=== PATIENT | male | born 1950 | race African-American/Black ===

== ENCOUNTER 2018-08-26 09:01 | Emergency (ER) | payer BC ==
--- OUTSIDE RECORDS SUMMARY | 2018-08-26 09:09 | XMS REPORT | Continuity of Care Document ---
:1950 External Reference #:[id number] Author Name Rosemarie Lu O.D. Address [address] [place] [address] Care Team Providers Name Role Phone Jay Jones M.D. Primary Care Physician Unavailable Payers Date Identification Numbers Payment Provider Subscriber Policy Number: [id number] [employer] Plan [employer] PayID: [id number] [address] [place] [address] Advance Directives Description No Information Available Problems Active Problems Provider Date Graves' disease Onset: Hypothyroidism Onset: Type 2 diabetes mellitus Onset: 12/12/2010 Note: 2010 Essential hypertension Onset: Low tension glaucoma Miguel Ángel Hoffmann M.D. Onset: 01/05/2015 Nuclear senile cataract Miguel Ángel Hoffmann M.D. Onset: 01/05/2015 Severe / Advanced / End Stage Glaucoma Miguel Ángel Hoffmann M.D. Onset: 2014 Combined form of senile cataract Miguel Ángel Hoffmann M.D. Onset: 03/04/2015 Low tension glaucoma Miguel Ángel Hoffmann M.D. Onset: 03/04/2015 Inguinal hernia Miguel Ángel Hoffmann M.D. 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 Solution night Brimonidine Tartrate 1 drop both 30ml Miguel Ángel Hoffmann, 07/05/2018 0.2% eyes twice a M.D. Solution day Travatan Z 1 drop both 7.5units Miguel Ángel Hoffmann, 02/02/2016 0.004% eyes every M.D. Solution night Levothyroxine Sodium Unknown 200mcg Tablets Losartan Unknown Potassium/Hydrochlorot hiazide 50-12.5mg Tablets Aspirin 2 daily Unknown 325mg Tablets History Medications Timolol Maleate use 1 drop In 15ml Miguel Ángel Mortensen 04/18/2018 - 0.5% Both Eyes daily Maximo Hoffmann 08/02/2018 (Daily) Solution (in the morning) Bimatoprost 1 drop both eyes 10units Miguel Ángel Mortensen 02/08/2016 - 0.03% every night Maximo Hoffmann 04/16/2018 Solution Pred Forte One drop three 5ml Miguel Ángel Mortensen 12/27/2015 - 1% times a day in Maximo Hoffmann 04/16/2018 Suspension the left eye for three days, then discontinue. Travoprost 1 drop both eyes 15ml Miguel Ángel Mortensen 12/27/2015 - 0.004% every night Maximo Hoffmann 01/31/2016 Solution Travoprost 1 drop both eyes 15ml H40.1233 Miguel Ángel Mortensen 08/09/2015 - 0.004% every night Maximo Hoffmann 01/31/2016 Solution Pred Forte One drop three 1ml H40.1233 Miguel Ángel Mortensen 03/04/2015 - 1% times a day after Maximo Hoffmann 08/05/2015 Suspension laser procedure Travoprost 1 drop both eyes 10ml H40.1233 Miguel Ángel Mortensen 01/05/2015 - 0.004% every night Maximo Hoffmann 08/03/2015 Solution Dorzolamide 1 drop both eyes Miguel Ángel Mortensen 01/04/2015 - HCL/Timolol Maleate daily Maximo Hoffmann 01/05/2015 22.3-6.8mg/ml Solution Immunizations Description No Information Available Vital Signs Description No Information Available Results Description No Information Available Procedures Date Code Description Status 04/18/2018 29899 Scanning Computerized Ophthalmic Diagnostic Imag Posterior Completed Seg On 04/18/2018 07407 Determination Of Refractive State Completed 04/18/2018 87113 Est Patient Comprehensive Exam Completed 04/15/2018 88979 Visual Field Exam Extended Completed 12/27/2015 78181 Est Patient Intermediate Exam Completed 08/09/2015 50782 Est Patient Intermediate Exam Completed 03/04/2015 50368 Visual Field Exam Extended Completed 03/04/2015 92839 Est Patient Intermediate Exam Completed 01/05/2015 36115 Est Patient Comprehensive Exam Completed 01/05/2015 44714 Scanning Computerized Ophthalmic Diagnostic Imag Posterior Completed Seg On 04/21/2014 76741 Visual Field Exam Extended Completed 04/08/2014 09060 Fundus Photography With Interpretation And Report Completed 04/08/2014 95463 Est Patient Comprehensive Exam Completed 11/20/2011 53394 Determination Of Refractive State Completed 11/20/2011 07226 Est Patient Intermediate Exam Completed 02/20/2011 25911 Visual Field Exam Extended Completed 02/06/2011 98408 Scanning Computerized Ophthalmic Diagnostic Imag Posterior Completed Seg On 02/06/2011 35663 Determination Of Refractive State Completed 02/06/2011 82747 Est Patient Comprehensive Exam Completed Encounters Type Date Location Provider Dx Diagnosis Office Visit 07/05/2018 Miguel Ángel Dillard, H40.1223 Low- tension 8:30a zeke JENNINGS M.D. glaucoma, left eye, severe stage H40.1211 Low-tension glaucoma, right eye, mild stage Office Visit 08/24/2015 8:15a Miguel Ángel Latham H40.1233 Low-tension MD Tahira, zeke Lu O.D. glaucoma, bilateral, severe stage Office Visit 04/21/2014 11:45a Miguel Ángel Méndez 365.12 Low Tension MD Tahira, zeke Quijano M.D. Glaucoma 365.72 Moderate Glaucoma Office Visit 04/03/2011 10:00a Rene Dillard, 365.12 Low Tension zeke JENNINGS M.D. Glaucoma 365.01 Low Risk Open Angle Glaucoma/ Suspect 365.72 Moderate Glaucoma Office Visit 03/20/2011 10:00a Rene Dillard, 365.12 Low Tension zeke JENNINGS M.D. Glaucoma 365.05 High Risk Open Angle Glaucoma 365.72 Moderate Glaucoma Office Visit 03/06/2011 10:00a Rene Dillard, 365.12 Low Tension zeke JENNINGS M.D. Glaucoma 365.01 Low Risk Open Angle Glaucoma/ Suspect 365.72 Moderate Glaucoma Office Visit 02/20/2011 10:45a Rene Dillard, 365.12 Low Tension zeke JENNINGS M.D. Glaucoma 365.05 High Risk Open Angle Glaucoma 365.72 Moderate Glaucoma Plan of Treatment Future Appointment(s):10/03/2018 9:30 am - Miguel Ángel Hoffmann M.D. at [facility], pc10/03/2018 8:30 am - [facility], 2018 - Rosemarie Lu O.D.H40.1223 Low-tension glaucoma, left eye, severe stageNew Medication:Latanoprost 0.005 % - 1 drop both eyes every nightComments: Your Glaucoma is not considered well controlled in both eyes at this time. This could mean that your eye pressure is not within your target range or your have consistent changes in your Glaucoma testing. Dr. Lu will monitor you more closely until your Glaucoma is under control. start latanoprost 1 drop daily both eyesstart taking brimonidine 1 drop twice a day both eyesFollow up: 2 weeks IOP [id number] Low-tension glaucoma, right eye, mild stageComments: Smoking can increase the risk of developing or worsening any eye related disease , as well as affect your overall health. If you are a smoker, we strongly recommend that you quit.If you are not a smoker, we strongly recommend that you do not start.
[2018-08-26 09:13] VITALS: BP 156/100
--- NOTE | 2018-08-26 10:00 | UC ---
Cardiac HPI - HPI Summary HPI Summary: 67 yo male with right sided chest pain that started this AM after eating breakfast pain lasted 20 nminutes during which time he became diaphorectic and vomitied x 1 this completely resolved his symptoms a little later he decided to take two adult asa due to his earlier CP he took both on an empty stomach a few minutes late he decided to eat some oatmeal as soon as he ate his right sided cp return lasted <10 minutes and resolved when he vomited states he had a stiff neck when he awoke this AM had some right arm paresthesias which resolved currently symptoms free - History of Current Complaint Chief Complaint: UCUpperExtremity Stated Complaint: R SHOULDER PAIN Time Seen by Provider: 08/26/18 09:38 Hx Obtained From: Patient Onset/Duration: Sudden Onset, Lasting Minutes Timing: Intermittent Episodes Lasting: - two episodes longest about 20 minutes Initial Severity: Severe Current Severity: None Pain Intensity: 0 Chest Pain Location: Discrete at: - right ant chest Character: Pressure/Squeezing Aggravating Factor(s): Other - ?food Alleviating Factor(s): Other - vomiting Associated Signs & Symptoms: Positive: Chest Pain, Diaphoresis, Nausea/Vomiting - Allergy/Home Medications Allergies/Adverse Reactions: Allergies Allergy/AdvReac Type Severity Reaction Status Date / Time ENVIRONMENTAL/SEASONAL Allergy SNEEZE, Uncoded 08/26/18 09:13 HAYFEVER CONGESTION PMH/Surg Hx/FS Hx/Imm Hx Previously Healthy: Yes Endocrine History: Diabetes, Thyroid Disease Cardiovascular History: Hypertension, Deep Vein Thrombosis - ? - Surgical History Surgical History: Yes Surgery Procedure, Year, and Place: inguinal repair 10 yrs ago; lap knee surgery BILATERAL KNEES - Social History Alcohol Use: None Substance Use Type: None Smoking Status (MU): Never Smoked Tobacco Review of Systems All Other Systems Reviewed And Are Negative: Yes Constitutional: Positive: Negative Skin: Positive: Negative Eyes: Positive: Negative ENT: Positive: Negative Respiratory: Positive: Negative Cardiovascular: Positive: Chest Pain Gastrointestinal: Positive: Vomiting, Nausea Genitourinary: Positive: Negative Motor: Positive: Negative Neurovascular: Positive: Negative Musculoskeletal: Positive: Negative Neurological: Positive: Negative Psychological: Positive: Negative Physical Exam Triage Information Reviewed: Yes Appearance: Well-Appearing, No Pain Distress Vital Signs: Initial Vital Signs Temp 97.1 F 08/26/18 09:08 Pulse 75 08/26/18 09:08 Resp 18 08/26/18 09:08 BP 156/100 08/26/18 09:08 Pulse Ox 100 08/26/18 09:08 Vital Signs Reviewed: Yes Eyes: Positive: Conjunctiva Clear ENT: Positive: Hearing grossly normal, Uvula midline. Negative: Nasal congestion, Nasal drainage, Trismus, Muffled voice, Hoarse voice Neck: Positive: Supple, Nontender, No Lymphadenopathy Respiratory: Positive: Lungs clear, Normal breath sounds, No respiratory distress, No accessory muscle use Cardiovascular: Positive: RRR, No Murmur Abdomen Description: Positive: Nontender, No Organomegaly, Soft. Negative: CVA Tenderness (R), CVA Tenderness (L) Bowel Sounds: Positive: Present Musculoskeletal: Positive: ROM Intact, No Edema Neurological: Positive: Alert Psychological Exam: Normal Skin Exam: Normal Diagnostics - EKG Cardiac Rate: NL Cardiac Rhythm: Sinus: Normal Ectopy: None ST Segment: Normal - Assessment/Plan Course Of Treatment: due to risk factors I advised patient to go to ER for further evaluation declined EMS transfer will drive ER attending aware - Clinical Impression Provider Diagnosis: Atypical chest pain Discharge - Sign-Out/Discharge Documenting (check all that apply): Patient Departure All imaging exams completed and their final reports reviewed: No Studies - Discharge Plan Condition: Stable Disposition: HOME-RECOMMEND TO ED Referrals: Jay Jones MD [Primary Care Provider] - Additional Instructions: Please go directly to the ER for further evaluation of your symptoms - Billing Disposition and Condition Condition: STABLE Disposition: Home-Recommend to ED
== END 2018-08-26 10:06 | disposition home health service (06) ==
LOC: UCEAST 09:01
DX: R07.89 Other chest pain (principal); R61 Generalized hyperhidrosis; R11.2 Nausea with vomiting, unspecified; E11.9 Type 2 diabetes mellitus without complications; E07.9 Disorder of thyroid, unspecified; I10 Essential (primary) hypertension
CPT/HCPCS: 93005; 99212; G0463

== ENCOUNTER 2018-08-26 10:52 | Emergency (ER) | payer BC ==
--- NOTE | 2018-08-26 11:17 | ED ---
HPI Chest Pain - HPI Summary HPI Summary: This pt is a 67 y/o male presenting to [facility] referred by [facility] for right upper abdomen pain since this morning. Pt reports he woke up at around 0500 this morning as usual to start his routine. He felt ok over the weekend, last 2 days. He notes that he had his usual light breakfast that included a banana, apple, oatmeal cookies, and cup of coffee. Pt states he did not have a good sleep last night and woke up this morning with a stiff neck. After his breakfast he notes he felt a "funny feeling" in the right upper abdomen, right shoulder, and felt his right hand was numb (unusual numbness). Pt went to do some work on his computer and noted his pain was worse. He then lied down but felt a stronger pain and had nausea. Pt vomited and states he felt immediately better after this. Pt took an aspirin after vomiting but then realized he had an empty stomach so he drank milk. He went back to his computer but felt the same pain again and rushed to vomit again. Pt reports he felt better again immediately after vomiting. Pt describes diaphoresis with both episodes of pain. Denies SOB. He has never had this pain in the past. Pt currently reports feeling ok. PMHx includes DM, HTN, thrombophlebitis. He is usually on aspirin but has recently switched to ibuprofen 600 mg for a recent knee injury. - History of Current Complaint Chief Complaint: EDChestPainROMI Time Seen by Provider: 08/26/18 11:05 Hx Obtained From: Patient Onset/Duration: Started Hours Ago Timing: Lasting Hours Initial Severity: Moderate Current Severity: None Pain Intensity: 0 Pain Scale Used: 0-10 Numeric Chest Pain Location: Discrete at: - right upper abdomen Chest Pain Radiates: No Aggravating Factor(s): Nothing Alleviating Factor(s): Other: - vomiting Associated Signs and Symptoms: Positive: Chest Pain, Numbness - right hand, Diaphoresis, Nausea, Vomiting, Other: - right shoulder pain. Negative: Shortness of Breath, Fever - Allergy/Home Medications Allergies/Adverse Reactions: Allergies Allergy/AdvReac Type Severity Reaction Status Date / Time ENVIRONMENTAL/SEASONAL Allergy SNEEZE, Uncoded 08/26/18 09:13 HAYFEVER CONGESTION Home Medications: Home Medications Aspirin TAB* [Aspirin 325 MG TAB*] 325 mg PO EVERY OTHER DAY 08/26/18 [History Confirmed 08/26/18] Latanoprost 0.005%* [Xalatan 0.005%*] 1 drop BOTH EYES BEDTIME 08/26/18 [ History Confirmed 08/26/18] Levothyroxine TAB* [Synthroid TAB*] 200 mcg PO DAILY 08/26/18 [History Confirmed 08/26/18] PMH/Surg Hx/FS Hx/Imm Hx Endocrine/Hematology History: Reports: Hx Diabetes - TYPE 2, 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 ) Denies: Hx Systemic Lupus Erythematosus, Hx Sickle Cell Disease Cardiovascular History: Reports: Hx Hypertension - WELL CONTROLLED WITH MEDICATION, Other Cardiovascular Problems/Disorders - 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 AGO, NO PROBLEMS NOW Denies: Hx Congestive Heart Failure, Hx Pacemaker/ICD Respiratory History: Denies: Hx Asthma, Hx Chronic Obstructive Pulmonary Disease (COPD), Hx Sleep Apnea GI History: Denies: Hx Ulcer History: Denies: Hx Dialysis, Hx Renal Disease, Other Problems/Disorders Musculoskeletal History: Reports: Hx Arthritis - BILATERAL KNEES Denies: Hx Rheumatoid Arthritis Sensory History: Reports: Hx Contacts or Glasses - GLASSES, Hx Glaucoma - BILATERAL Denies: Hx Hearing Aid Opthamlomology History: Reports: Hx Contacts or Glasses - GLASSES, Hx Glaucoma - BILATERAL Neurological History: Denies: Other Neuro Impairments/Disorders Psychiatric History: Denies: Hx Panic Disorder - Cancer History Hx Chemotherapy: No - Surgical History Surgery Procedure, Year, and Place: inguinal repair 10 yrs ago; lap knee surgery BILATERAL KNEES Hx Anesthesia Reactions: No Infectious Disease History: No Infectious Disease History: Denies: Hx Hepatitis, Hx Human Immunodeficiency Virus (HIV), Traveled Outside the [place] in Last 30 Days - Family History Family History: Father with leukemia - Social History Alcohol Use: None Substance Use Type: Reports: None Smoking Status (MU): Never Smoked Tobacco Review of Systems Positive: Skin Diaphoresis. Negative: Fever Negative: Shortness Of Breath Positive: Abdominal Pain, Vomiting, Nausea Musculoskeletal: Other - POS: right shoulder pain Positive: Numbness - right hand All Other Systems Reviewed And Are Negative: Yes Physical Exam - Summary Physical Exam Summary: Appearance: Well-appearing, Well-nourished, lying in bed comfortably Skin: Warm, dry, no obvious rash Eyes: sclera anicteric, no conjunctival pallor ENT: mucous membranes moist, pharynx appears normal Neck: Supple, nontender Respiratory: Clear to auscultation, no signs of respiratory distress Cardiovascular: Normal S1, S2. No murmurs. Normal distal pulses in tibial and radial bilaterally. Abdomen: Soft, nontender, normal active bowel sounds present Musculoskeletal: Normal, Strength/ROM Intact Neurological: A&Ox3, awake and alert, mentation is normal, speech is fluent and appropriate Psychiatric: affect is normal, does not appear anxious or depressed Triage Information Reviewed: Yes Vital Signs On Initial Exam: Initial Vitals Temp Pulse Resp BP Pulse Ox 98.0 F 79 20 156/96 98 08/26/18 10:57 08/26/18 10:57 08/26/18 10:57 08/26/18 10:57 08/26/18 10:57 Vital Signs Reviewed: Yes Diagnostics - Vital Signs Vital Signs Temp Pulse Resp BP Pulse Ox 08/26/18 10:57 98.0 F 79 20 156/96 98 - Laboratory Result Diagrams: 08/26/18 11:38 08/26/18 11:38 Lab Statement: Any lab studies that have been ordered have been reviewed, and results considered in the medical decision making process. - Radiology Chest XR Radiology Interpretation Completed By: ED Physician - negative XR, Radiologist Summary of Radiographic Findings: Pending official radiology report. - Ultrasound No standard instances Ultrasound Interpretation Completed By: Radiologist Summary of Ultrasound Findings: Gallbladder US IMPRESSION: #. Increased echogenicity of the liver consistent with hepatosteatosis. #. Negative for gallbladder pathology. Dr. Gonzalez has reviewed this report. - EKG 11:08 Cardiac Rate: NL - at 71 bpm EKG Rhythm: Sinus Rhythm Summary of EKG Findings: IVCD. Chest Pain Course/Dx - Course Assessment/Plan: Pt is a 67 y/o male, with hx of DM, HTN, thrombophlebitis, who presents to the ED referred by [facility] for right upper abdomen pain since this morning. Pt has had 2 episodes of this pain today with associated right shoulder pain, diaphoresis, nausea, and vomiting. He felt immediately better after vomiting during both episodes. Test results remarkable for glucose of 141 , hemoglobin A1c of 7.2. UA is negative. Gallbladder US shows increased echogenicity of the liver consistent with hepatosteatosis and it is negative for gallbladder pathology. Chest XR is negative. This patient's pain is felt to be atypical for cardiac disease. His HEART score is 3 based on risk factors and age. We are going to give him something to eat and see if it comes back, as his symptoms seem to be precipitated by eating this morning. His gallbladder ultrasound does not show any stones. At this point the exact cause of his discomfort this morning is unclear. However, no significant pathology has been turned up in the course of her evaluation here, and if he does well with eating, I believe he can be safely discharged. - Diagnoses Provider Diagnoses: Gastritis, Acute abdominal pain Discharge - Sign-Out/Discharge Documenting (check all that apply): Patient Departure - Discharge home Patient Received Moderate/Deep Sedation with Procedure: No - Discharge Plan Condition: Good Disposition: HOME Prescriptions: Ondansetron ODT TAB* [Zofran 4 MG Odt TAB*] 8 mg PO Q6H PRN #14 tab.odt PRN Reason: Nausea Pantoprazole TAB * [Protonix TAB*] 40 mg PO DAILY #14 tab Patient Education Materials: Gastritis (ED), Acute Abdominal Pain (ED) Referrals: Jay Jones MD [Primary Care Provider] - 2 Days Additional Instructions: We did not find an exact cause of your discomfort. The ultrasound did not show any gallstones, and the workup on the heart was normal. For the time being I am empirically treating you for irritation in the stomach with an acid blocking medication. Contact your regular doctor for followup. They may want to refer you to a machine design teacher if this keeps up to have an endoscopy done. - Billing Disposition and Condition Condition: GOOD Disposition: Home - Attestation Statements Document Initiated by David: Yes Documenting Scribe: Janny Kumar Provider For Whom David is Documenting (Include Credential): MD Barry Arriagaibjean Attestation: Janny Felix, scribed for Nabil Gonzalez MD on 08/27/18 at 1103. Scribe Documentation Reviewed: Yes Provider Attestation: The documentation as recorded by the Janny rodrigues accurately reflects the service I personally performed and the decisions made by me, Nabil Gonzalez MD Status of Scribe Document: Viewed
[2018-08-26 12:00] LABS: ABS Basophils 0 10^3/ul (0-0.2); ABS Eosinophils 0 10^3/ul (0-0.6); ABS Lymphocytes 0.7 10^3/ul (1.0-4.8); ABS Monocytes 0.3 10^3/ul (0-0.8); ABS Neutrophils 5.8 10^3/ul (1.5-7.7); ABS Nucleated RBC 0 10^3/ul; Eosinophil % 0.3 %; Hematocrit 44 % (36-46); Hemoglobin 15.3 g/dL (14.0-18.0); Mean Corpuscular HGB Conc 34 g/dL (31-36); Mean Corpuscular Hemoglobin 33 pg (27-31); Mean Corpuscular Volume 96 fL (80-94); Mean Platelet Volume 8.4 fL (7.4-10.4); Nucleated Red Blood Cells % 0; Platelet Count 202 10^3/uL (150-450); Red Blood Count 4.65 10^6 /uL (4.18-5.48); Red Cell Distribution Width 14 % (10.5-15); White Blood Count 6.8 10^3/uL (3.5-10.8)
[2018-08-26 12:21] LABS: Albumin/Globulin Ratio 1.5 (1-3); BUN/Creatinine Ratio 13.1 (8-20); Calcium 10.5 mg/dL (8.6-10.3); EGFR African American 83.4 (>60); EGFR Non-African American 68.9 (>60); Globulin 2.7 g/dL (2-4); Potassium 4.1 mmol/L (3.5-5.0); Total Bilirubin 0.7 mg/dL (0.2-1.0); Total Protein 6.7 g/dL (6.4-8.9)
[2018-08-26 12:22] LABS: Troponin I 0.01 ng/mL (<0.04)
[2018-08-26 12:54] LABS: Urine Appearance Clear; Urine Bilirubin Negative (Negative); Urine Blood Negative (Negative); Urine Color Yellow; Urine Glucose Negative (Negative); Urine Ketones Negative (Negative); Urine Nitrite Negative (Negative); Urine Protein Negative (Negative); Urine Specific Gravity 1.013 (1.010-1.030); Urine Urobilinogen Negative (Negative)
[2018-08-26 14:48] VITALS: BP 162/80
== END 2018-08-26 14:48 | disposition home or self-care (01) ==
LOC: ED 10:52
DX: K29.70 Gastritis, unspecified, without bleeding (principal); K76.89 Other specified diseases of liver; R94.31 Abnormal electrocardiogram [ECG] [EKG]; I10 Essential (primary) hypertension; E11.9 Type 2 diabetes mellitus without complications; E05.00 Thyrotoxicosis with diffuse goiter without thyrotoxic crisis or storm; Z79.82 Long term (current) use of aspirin; Z79.890 Hormone replacement therapy; Z86.718 Personal history of other venous thrombosis and embolism
CPT/HCPCS: 36415; 71046; 76705; 80053; 81003; 83036; 83605; 84484; 85025; 85379; 93005; 99282

== ENCOUNTER 2018-08-26 20:36 | Emergency (ER) | payer BC ==
--- NOTE | 2018-08-26 23:11 | ED ---
Complex/Multi-Sys Presentation - HPI Summary HPI Summary: Patient is a 67 y/o M presenting to ED with complaints of right shoulder pain radiating down right arm with numbness/tingling at right palm. Episodes of Sx have been present throughout the day. He states that this morning, he ate some food, felt a "funny feeling" at his RUQ (patient denies abdominal pain) and began to experience RUE Sx. He states that he went to sit down in front of his computer which worsened Sx. He states that he later vomited which resolved Sx. Patient went to ED earlier this morning, was diagnosed with gastritis and was discharged to home. He states that he experienced a similar episode of Sx after eating dinner today and decided to return to ED. No SOB, chest pain is reported , but patient does note some neck pain/stiffness, but states that it is possible this is related to how he slept. Patient notes that RUE Sx would always resolve after vomiting. No similar previous episodes of such Sx are reported. On triage, pain is rated 10/10, eating is noted to aggravate Sx. Home medications and allergies are reviewed. - History Of Current Complaint Chief Complaint: EDGeneral Time Seen by Provider: 08/26/18 22:55 Hx Obtained From: Patient Onset/Duration: Lasting Days - onset today, Still Present Timing: Intermittent, Lasting:, Days - onset today Severity Initially: Severe - 10/10 Location: Pain At: - right shoulder down right arm Aggravating Factor(s): eating Alleviating Factor(s): nothing Associated Signs And Symptoms: Positive: Vomiting, Other - endorses right shoulder pain with radiation of pain down arm, tingling/numbness at right palm, neck pain/stiffness. 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 ) Denies: Hx Systemic Lupus Erythematosus, Hx Sickle Cell Disease Cardiovascular History: Reports: Hx Hypertension - WELL CONTROLLED WITH MEDICATION, Other Cardiovascular Problems/Disorders - 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 AGO, NO PROBLEMS NOW Denies: Hx Congestive Heart Failure, Hx Pacemaker/ICD Respiratory History: Denies: Hx Asthma, Hx Chronic Obstructive Pulmonary Disease (COPD), Hx Sleep Apnea GI History: Denies: Hx Ulcer History: Denies: Hx Dialysis, Hx Renal Disease, Other Problems/Disorders Musculoskeletal History: Reports: Hx Arthritis - BILATERAL KNEES Denies: Hx Rheumatoid Arthritis Sensory History: Reports: Hx Contacts or Glasses - GLASSES, Hx Glaucoma - BILATERAL Denies: Hx Hearing Aid Opthamlomology History: Reports: Hx Contacts or Glasses - GLASSES, Hx Glaucoma - BILATERAL Neurological History: Denies: Other Neuro Impairments/Disorders Psychiatric History: Denies: Hx Panic Disorder - Cancer History Hx Chemotherapy: No - Surgical History Surgery Procedure, Year, and Place: inguinal repair 10 yrs ago; lap knee surgery BILATERAL KNEES Hx Anesthesia Reactions: No - Immunization History Date of Influenza Vaccine: no Infectious Disease History: No Infectious Disease History: Denies: Hx Hepatitis, Hx Human Immunodeficiency Virus (HIV), Traveled Outside the [place] in Last 30 Days - Family History Known Family History: Positive: Other Family History: Father with leukemia - Social History Alcohol Use: None Substance Use Type: Reports: None Smoking Status (MU): Never Smoked Tobacco Review of Systems Negative: Chest Pain Negative: Shortness Of Breath Positive: Vomiting. Negative: Abdominal Pain Musculoskeletal: Other - endorses right shoulder pain with radiation of pain down arm, tingling/numbness at right palm, neck pain/stiffness All Other Systems Reviewed And Are Negative: Yes Physical Exam - Summary Physical Exam Summary: VITAL SIGNS: Reviewed. GENERAL: Patient is a well-developed and nourished male who is lying comfortable in the stretcher. Patient is not in any acute respiratory distress. HEAD AND FACE: No signs of trauma. No ecchymosis, hematomas or skull depressions. No sinus tenderness. EYES: PERRLA, EOMI x 2, No injected conjunctiva, no nystagmus. EARS: Hearing grossly intact. Ear canals and tympanic membranes are within normal limits. MOUTH: Oropharynx within normal limits. NECK: Supple, trachea is midline, no adenopathy, no JVD, no carotid bruit, no c- spine tenderness, neck with full ROM. CHEST: Symmetric, no tenderness at palpation LUNGS: Clear to auscultation bilaterally. No wheezing or crackles. CVS: Regular rate and rhythm, S1 and S2 present, no murmurs or gallops appreciated. ABDOMEN: Soft, non-tender. No signs of distention. No rebound no guarding, and no masses palpated. Bowel sounds are normal. EXTREMITIES: FROM in all major joints, no edema, no cyanosis or clubbing. NEURO: Alert and oriented x 3. No acute neurological deficits. Speech is normal and follows commands. SKIN: Dry and warm Triage Information Reviewed: Yes Vital Signs On Initial Exam: Initial Vitals Temp Pulse Resp BP Pulse Ox 97 F 89 20 179/101 95 08/26/18 21:02 08/26/18 21:02 08/26/18 21:02 08/26/18 21:02 08/26/18 21:02 Vital Signs Reviewed: Yes Diagnostics - Vital Signs Vital Signs Temp Pulse Resp BP Pulse Ox 08/26/18 23:02 98.2 F 85 15 161/101 100 08/26/18 21:02 97 F 89 20 179/101 95 - Laboratory Lab Statement: Any lab studies that have been ordered have been reviewed, and results considered in the medical decision making process. - CT cervical spine ct CT Interpretation Completed By: Radiologist Summary of CT Findings: IMPRESSION: 1. Mild multilevel cervical spondylopathy. 2. OPLL. THIS REPORT WAS REVIEWED BY DR. GIBBS. Re-Evaluation - Re-Evaluation First Eval Re-Evaluation Time: 00:43 Comment: Results of CT was discussed with patient, he will be discharged to home and follow up with PCP and neck doctor, patient is agreeable with this. Complex Multi-Symp Course/Dx Course Of Treatment: Patient is a 67 y/o M presenting to ED with complaints of right shoulder pain radiating down right arm with numbness/tingling at right palm. Episodes of Sx have been present throughout the day. He states that this morning, he ate some food, felt a "funny feeling" at his RUQ (patient denies abdominal pain) and began to experience RUE Sx. He states that he went to sit down in front of his computer which worsened Sx. He states that he later vomited which resolved Sx. Patient went to ED earlier this morning, was diagnosed with gastritis and was discharged to home. He states that he experienced a similar episode of Sx after eating dinner today and decided to return to ED. No SOB, chest pain is reported, but patient does note some neck pain/stiffness, but states that it is possible this is related to how he slept. Patient notes that RUE Sx would always resolve after vomiting. No similar previous episodes of such Sx are reported. Physical exam is unremarkable. CT CERVICAL SPINE IMPRESSION: 1. Mild multilevel cervical spondylopathy. 2. OPLL. During ED course, patient received Ultram 50 mg PO, decadron [address] of CT was discussed with patient, he will be discharged to home and follow up with PCP and neck doctor, patient is agreeable with this. - Diagnoses Provider Diagnoses: Cervical radiculopathy Discharge - Sign-Out/Discharge Documenting (check all that apply): Patient Departure - discharge Patient Received Moderate/Deep Sedation with Procedure: No - Discharge Plan Condition: Stable Disposition: HOME Prescriptions: Dexamethasone TAB* [Decadron TAB*] 4 mg PO BID #10 tab traMADol TAB* [Ultram*] 50 mg PO Q6HR PRN #[id number] tab MDD 4 PRN Reason: Pain Patient Education Materials: Cervical Radiculopathy (ED) Referrals: Jay Jones MD [Primary Care Provider] - 3 Days Chelsie Verde MD [Medical Doctor] - 3 Days Additional Instructions: PLEASE RETURN TO THE EMERGENCY DEPARTMENT IMMEDIATELY FOR WORSENING OR CONCERNING SYMPTOMS. FOLLOW UP WITH YOUR PRIMARY CARE PHYSICIAN AND DR. VERDE WITHIN THREE DAYS. - Attestation Statements Document Initiated by Scribe: Yes Documenting Scribe: RAIMUNDO MITCHELL Provider For Whom Scribe is Documenting (Include Credential): MICHAEL GIBBS MD Scribe Attestation: I, RAIMUNDO MITCHELL, scribed for MICHAEL GIBBS MD on 08/27/18 at 0048. Status of Scribe Document: Ready
[2018-08-26] MEDS ORDERED: traMADol TAB* 50 MG PO ONE (23:17)
[2018-08-27] MEDS ORDERED: Dexamethasone TAB* 4 MG PO ONE (00:38)
[2018-08-27 01:11] VITALS: BP 165/95
== END 2018-08-27 01:09 | disposition home or self-care (01) ==
LOC: ED 20:36
DX: M54.12 Radiculopathy, cervical region (principal); M25.511 Pain in right shoulder; R11.10 Vomiting, unspecified; E11.9 Type 2 diabetes mellitus without complications; I10 Essential (primary) hypertension
CPT/HCPCS: 72125; 99283; A9270-GY; J8540

== ENCOUNTER 2018-11-23 22:11 | Inpatient (IN) | payer BC ==
[2018-11-23] MEDS ORDERED: Labetalol IV* 5 MG/ML 20 ML VIAL IV PUSH ONE (22:25)
--- NOTE | 2018-11-23 22:32 | ED ---
Neurological HPI - HPI Summary HPI Summary: This patient is a 68 year old F presenting to ED with a chief complaint of left arm numbness and paresthesia since 2144 today. Patient was lying down and using his phone with his left hand when the symptoms began. He felt the numbness in his hand and arm and left leg. Per , his speech was not normal, described as thick. She also noticed that his mouth was drooping on the left side. Patient thus took Aspirin. In the room, patient reports the numbness is feeling better than when he left his house. Patient has a history of clots in his legs 10 years ago, and was on blood thinners then, but he no longer takes them. Patient arrives at 2. Dr. Gonzalez at bedside at 2216. Shelli Kulkarni called [id number]. The patient rates the pain 0/10 in severity. Symptoms aggravated by nothing. Symptoms alleviated by nothing. Patient denies fever. Upon examination, patient has an NIH stroke scale of 0. - History of Current Complaint Chief Complaint: EDNeurologicalDeficit Stated Complaint: SLURRED SPEECH, DROOPING ON LEFT SIDE PER PT Time Seen by Provider: 11/23/18 22:19 Last Known Well Date: 214411/23/18 Hx Obtained From: Patient, Family/Psychometrician - Onset/Duration: Sudden Onset, Started minutes ago - 2144, Resolved Onset Severity: Mild Current Severity: Mild Neurological Deficit Location: Facial - Left facial droop, LUE, LLE Pain Intensity: 0 Pain Scale Used: 0-10 Numeric Character: Numbness/Tingling - LUE, Paresthesia - LUE, Other: - Left facial droop, change in speech Aggravating: Nothing Alleviating: Nothing Associated Signs and Symptoms: Positive: Impaired Speech - Thick, per patient, Numbness - LUE - Allergy/Home Medications Allergies/Adverse Reactions: Allergies Allergy/AdvReac Type Severity Reaction Status Date / Time ENVIRONMENTAL/SEASONAL Allergy SNEEZE, Uncoded 08/26/18 09:13 HAYFEVER CONGESTION PMH/Surg Hx/FS Hx/Imm Hx Endocrine/Hematology History: Reports: Hx Diabetes - TYPE 2, 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 ) Denies: Hx Systemic Lupus Erythematosus, Hx Sickle Cell Disease Cardiovascular History: Reports: Hx Hypertension - WELL CONTROLLED WITH MEDICATION, Other Cardiovascular Problems/Disorders - 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 AGO, NO PROBLEMS NOW Denies: Hx Congestive Heart Failure, Hx Pacemaker/ICD Respiratory History: Denies: Hx Asthma, Hx Chronic Obstructive Pulmonary Disease (COPD), Hx Sleep Apnea GI History: Denies: Hx Ulcer History: Denies: Hx Dialysis, Hx Renal Disease, Other Problems/Disorders Musculoskeletal History: Reports: Hx Arthritis - BILATERAL KNEES Denies: Hx Rheumatoid Arthritis Sensory History: Reports: Hx Contacts or Glasses - GLASSES, Hx Glaucoma - BILATERAL Denies: Hx Hearing Aid Opthamlomology History: Reports: Hx Contacts or Glasses - GLASSES, Hx Glaucoma - BILATERAL Neurological History: Denies: Hx Seizures, Other Neuro Impairments/Disorders Psychiatric History: Denies: Hx Panic Disorder - Cancer History Hx Chemotherapy: No - Surgical History Surgery Procedure, Year, and Place: inguinal repair 10 yrs ago; lap knee surgery BILATERAL KNEES Hx Anesthesia Reactions: No - Immunization History Date of Influenza Vaccine: no Infectious Disease History: No Infectious Disease History: Denies: Hx Hepatitis, Hx Human Immunodeficiency Virus (HIV), Traveled Outside the [place] in Last 30 Days - Family History Known Family History: Positive: Other - Leukemia in father Family History: Father with leukemia - Social History Alcohol Use: None Hx Substance Use: No Substance Use Type: Reports: None Hx Tobacco Use: No Smoking Status (MU): Never Smoked Tobacco Review of Systems Negative: Fever Neurological: Other - Left facial droop, thick speech Positive: Paresthesia - Left arm, Numbness - Left-sided All Other Systems Reviewed And Are Negative: Yes Physical Exam - Summary Physical Exam Summary: Appearance: Well-appearing, Well-nourished, lying in bed comfortably Skin: Warm, dry, no obvious rash Eyes: sclera anicteric, no conjunctival pallor ENT: mucous membranes moist, pharynx appears normal Neck: Supple, nontender Respiratory: Clear to auscultation, no signs of respiratory distress Cardiovascular: Normal S1, S2. No murmurs. Normal distal pulses in tibial and radial bilaterally. Abdomen: Soft, nontender, normal active bowel sounds present Musculoskeletal: Normal, Strength/ROM Intact, Motor function in all 4 extremities is normal and symmetric. There is no rigidity or tremor noted. Neurological: A&Ox3, awake and alert, mentation is normal, speech is fluent and appropriate, Level of consciousness nml. The patient is alert and oriented. Cranial nerves are grossly intact. Gaze is conjugate and without nystagmus. Peripheral vision is intact to confrontation. There are no gross sensory abnormalities to light touch. There is no truncal or fine motor ataxia. Gait is normal. Psychiatric: affect is normal, does not appear anxious or depressed GCS: 15 NIH: 0 Triage Information Reviewed: Yes Vital Signs On Initial Exam: Initial Vitals Temp Pulse Resp BP Pulse Ox 97.5 F 78 16 169/111 99 11/23/18 22:17 11/23/18 22:17 11/23/18 22:17 11/23/18 22:17 11/23/18 22:17 Vital Signs Reviewed: Yes Diagnostics - Vital Signs Vital Signs Temp Pulse Resp BP Pulse Ox 11/23/18 22:17 97.5 F 78 16 169/111 99 - Laboratory Result Diagrams: 11/23/18 22:37 11/23/18 22:37 Lab Statement: Any lab studies that have been ordered have been reviewed, and results considered in the medical decision making process. - CT Brain CT Interpretation Completed By: Radiologist Summary of CT Findings: No acute intracranial abnormality. Dr. Gonzalez has reviewed this radiology report. - EKG 2244 Cardiac Rate: NL - 69 BPM EKG Rhythm: Sinus Rhythm ST Segment: Normal Ectopy: None Summary of EKG Findings: NSR at 69 BPM, P waves, QRS complex, and T waves are within normal limits, T waves and intervals are normal, no ischemic changes. This is a normal EKG. NIH Scale - NIH Scale Level of Consciousness: Alert/Keenly Responsive Ask Patient the Month and His/Her Age: Both Correct Ask Pt to Open/Close Eyes and Breaker Machine Tender/Release Non-Paretic Hand: Both Correctly Best Gaze (Only Horizontal Eye Movement): Normal Visual Field Testing: No Visual Loss Facial Paresis-Pt to Smile & Close Eyes or Grimace Symmetry: Normal/Symmetrical Motor Function - Right Arm: No Drift-Holds 10 Seconds Motor Function - Left Arm: No Drift-Holds 10 Seconds Motor Function - Right Leg: No Drift-Holds 10 Seconds Motor Function - Left Leg: No Drift-Holds 10 Seconds Limb Ataxia-Must be out of Proportion to Weakness Present: Absent Sensory (Use Pinprick to Test Arms/Legs/Trunk/Face): Normal Best Language (Describe Picture, Name Items): No Aphasia Dysarthria (Read Several Words): Normal Extinction and Inattention: No Abnormality Total Score: 0 Re-Evaluation - Re-Evaluation First Eval Re-Evaluation Time: 21:44 Comment: Discussed brain CT results with patient. Patient will be admitted to [facility] with dx of TIA and for further neuro work-up. Patient understands and agrees with this plan. Course/Dx - Course Course Of Treatment: This patient is a 68 year old F presenting to ED with a chief complaint of left arm numbness and paresthesia since 2144 today. In the ED course, patient received Trandate. Brain CT revealed no acute intracranial abnormality. Blood work obtained. EKG at 4 revealed NSR at 69 BPM, P waves, QRS complex, and T waves are within normal limits, T waves and intervals are normal, no ischemic changes. This is a normal EKG. Discussed patient case with Dr. Coello, neurologist at [place], who does not recommend lytics but recommended the patient be admitted to [facility] and to obtain a CTA. At 2300 discussed patient case with Dr. Porter, hospitalist, who accepted the patient for admission to [facility]. Patient will be admitted with dx of TIA. Patient understands and agrees with this plan. - Diagnoses Provider Diagnoses: TIA (transient ischemic attack) - Physician Notifications Discussed Care Of Patient With: Bryan Coello Time Discussed With Above Provider: 22:38 Instructed by Provider To: Other - Discussed patient case with Dr. Coello, neurologist at [place], who does not recommend lytics but recommended the patient be admitted to [facility] and to obtain a CTA. At 23[address] discussed patient case with Dr[address] Porter, hospitalist, who accepted the patient for admission to [facility]. - Critical Care Time Critical Care Time: 30-74 min - 30 minutes Discharge - Sign-Out/Discharge Documenting (check all that apply): Patient Departure - Admit Patient Received Moderate/Deep Sedation with Procedure: No - Discharge Plan Condition: Good Disposition: ADMITTED TO [facility] Referrals: Jay Jones MD [Primary Care Provider] - - Attestation Statements Document Initiated by Scribe: Yes Documenting Scribe: Jay Manzano Provider For Whom Scribe is Documenting (Include Credential): Nabil Gonzalez MD Scribe Attestation: Jay Felix, scribed for Naibl Gonzalez MD on 11/23/18 at 2308. Status of Scribe Document: Ready
[2018-11-23 22:44] LABS: ABS Eosinophils 0.5 10^3/ul (0-0.6); ABS Monocytes 0.5 10^3/ul (0-0.8); ABS Neutrophils 2.8 10^3/ul (1.5-7.7); Hematocrit 43 % (42-52); Hemoglobin 14.7 g/dL (14.0-18.0); Lymphocyte % 34.6 %; Mean Corpuscular HGB Conc 35 g/dL (31-36); Mean Corpuscular Hemoglobin 33 pg (27-31); Mean Corpuscular Volume 96 fL (80-94); Mean Platelet Volume 7.8 fL (7.4-10.4); Platelet Count 223 10^3/uL (150-450); Red Blood Count 4.42 10^6 /uL (4.18-5.48); Red Cell Distribution Width 14 % (10-15); White Blood Count 5.9 10^3/uL (3.5-10.8)
[2018-11-23 22:55] LABS: Activated Partial Thrombo Time 32.9 seconds (26.0-38.0); INR 0.94 (0.82-1.09)
[2018-11-23 23:02] LABS: Albumin 3.9 g/dL (3.2-5.2); Albumin/Globulin Ratio 1.4 (1-3); BUN/Creatinine Ratio 13.6 (8-20); Calcium 10.3 mg/dL (8.6-10.3); EGFR African American 69.5 (>60); EGFR Non-African American 57.4 (>60); Globulin 2.8 g/dL (2-4); HDL Cholesterol 44.4 mg/dL; Potassium 4.3 mmol/L (3.5-5.0); Total Bilirubin 0.6 mg/dL (0.2-1.0); Total Protein 6.7 g/dL (6.4-8.9)
[2018-11-23] MEDS ORDERED: NS 0.9% 1000 ML** 1,000 ML IV SCH (23:30)
[2018-11-23] MEDS ORDERED: Dextrose 50% Syringe 50 ML* 25 GM/50 ML SYRINGE IV PUSH PRN (23:33)
[2018-11-23] MEDS ORDERED: hydrALAZINE IV* 20 MG/ML VIAL IV SLOW PU PRN (23:35)
[2018-11-23] MEDS: Iodixanol* (CONTRAST) 320 MG/ML 100 ML SDV IV ONE (23:40)
[2018-11-23 23:56] LABS: TSH (Thyroid Stimulating Horm) 24.57 mcIU/mL (0.34-5.60)
[2018-11-24] MEDS: Iodixanol* (CONTRAST) 320 MG/ML 100 ML SDV IV ONE
[2018-11-24] MEDS: Enoxaparin(*) 40 MG/0.4 ML SYR SUBCUT SCH ×2 (00:46→23:32)
[2018-11-24 03:56] LABS: Urine Appearance Clear; Urine Bilirubin Negative (Negative); Urine Blood Negative (Negative); Urine Color Yellow; Urine Glucose Negative (Negative); Urine Ketones Negative (Negative); Urine Nitrite Negative (Negative); Urine Protein Negative (Negative); Urine Specific Gravity 1.036 (1.010-1.030); Urine Urobilinogen Negative (Negative)
[2018-11-24] MEDS ORDERED: Clopidogrel TAB* 300 MG PO ONE (04:07)
[2018-11-24] MEDS ORDERED: Melatonin 3 MG TAB PO ONE (04:07)
[2018-11-24] MEDS: Levothyroxine TAB* 75 MCG TAB PO SCH (05:35)
[2018-11-24] MEDS ORDERED: Levothyroxine TAB* 50 MCG TAB PO SCH (06:00)
[2018-11-24 06:09] LABS: BUN/Creatinine Ratio 12.2 (8-20); Calcium 9.7 mg/dL (8.6-10.3); EGFR African American 76.5 (>60); EGFR Non-African American 63.2 (>60); Potassium 3.8 mmol/L (3.5-5.0)
[2018-11-24] MEDS: Insulin LISPRO* 1 UNITS UNIT SUBCUT SCH ×3 (07:48→17:08)
[2018-11-24] MEDS: Hydrochlorothiazide TAB* 25 MG PO SCH (08:42)
[2018-11-24] MEDS: Aspirin 81 mg CHEW TAB* 81 MG TAB.CHEW PO SCH (08:42)
[2018-11-24] MEDS: Losartan TAB* 25 MG PO SCH (08:42)
[2018-11-24] MEDS ORDERED: METFORM PO SCH (09:00)
[2018-11-24] MEDS ORDERED: Sitagliptin (NF) 50 MG TAB PO SCH (09:00)
[2018-11-24] MEDS ORDERED: SITAGLIP PO SCH (09:00)
--- NOTE | 2018-11-24 09:17 | HP ---
HISTORY OF PRESENT ILLNESS: DATE OF ADMISSION: 11/23/18 PRIMARY CARE PROVIDER: Jay Jones MD CEMENT STORAGE WORKER: Sheela Lemus, the patient's . CODE STATUS: Full. CHIEF COMPLAINT: Left arm weakness. HISTORY OF PRESENT ILLNESS: This is a 68-year-old male with a past medical history of hypothyroidism; hypertension; nkz-vdsbupi-cngktlqyp diabetes; distant history of provoked DVT, greater than 10 years ago, no longer on anticoagulation, who presented to the emergency room this evening as a code thompson with acute onset of left arm weakness. The patient reports left arm numbness and some weakness. The patient reports that he was in his usual state of health until this evening when he was lying in bed using a cell phone and noted that his left arm felt numb and weak. He told his who was sitting next to him and she noted that his mouth was also drooping at his left side and speech was somewhat slurred. She described it as "sick." He had no word finding difficulties or confusion. He took 325 mg of aspirin at home and his took him to the emergency room EMERGENCY ROOM COURSE: Upon arrival to the emergency room all symptoms had resolved. He and his felt that they lasted for a total of 45 minutes. An NIH stroke scale on arrival was 0. Vital signs were blood pressure 169/111, temperature is 97.5, heart rate 78, he is satting 99% of room air, respiratory rate 16. Labs showed hyponatremia 231, creatinine of 1.25, TSH elevated at 25. A CT head showed no acute intracranial pathology. An EKG was done this showed normal sinus rhythm, low-voltage, borderline first-degree AV block. A CTA was pending at time of admission. Labetalol 20 mg IV x1 was given. Telestroke discussed the case prior to the CTA being done and felt the presentation was most consistent with a TIA and the hospitalist team was asked to admit the patient for further eval and treatment. 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 The patient had stuttering symptoms of his TIA with intermittent transient speech symptoms just prior to returning from imaging that lasted only a few minutes and has intermittent left arm numbness. Secondary to his stuttering symptoms, telestroke was recontacted, who reviewed the images noting left vertebral artery occlusion with collateral flow showing distal perfusion, but given the patient's stuttering symptoms, suggested the patient be loaded with Plavix given high risk TIA symptoms. The patient will remain at [facility] [place] for continued TIA workup and management including consultation with neurology. PAST MEDICAL HISTORY: Hypothyroidism; hypertension; doc-ssnafit-hscotmhit diabetes; distant history of provoked DVT from inguinal hernia repair, off anticoagulants for 10 years; distant history of Graves disease; glaucoma. PAST SURGICAL HISTORY: Bilateral inguinal hernia repair, prior right knee surgery. MEDICATIONS: 1. Metformin sitagliptin combo 50,000 one tab p.o., b.i.d. 2. Levothyroxine 50 mcg p.o. daily. 3. Latanoprost 1 drop both eyes q.h.s. 4. Losartan HCTZ combo pill 50/12.5 two tabs p.o. q.p.m. 5. Aspirin 325 mg p.o. every other day. ALLERGIES: SHRIMP, ENVIRONMENTAL and SEASONAL allergies. FAMILY HISTORY: His father is positive for leukemia. His mother has hypertension and thyroid disease. 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 He is a lifetime non-smoker, nonalcohol, nonilicits. Originally, from [place], lives at home with his and children. REVIEW OF SYSTEMS: Constitutional: Negative for fever, chills and malaise. HEENT is negative for vision changes, headaches or pain. HEENT is negative for sore throat, difficulty swallowing. Cardiovascular is negative for chest pain, palpitations, and orthopnea. Respiratory: Negative for shortness of breath, cough, pleuritic chest pain. GI: Negative for nausea, vomiting, diarrhea or abdominal pain. : Negative for dysuria, hematuria. Musculoskeletal: Negative for myalgias, arthralgias or weakness. Skin: Negative for rashes or lesions. Neurologic: Positive for focal weakness and numbness of left arm, speech changes and left facial droop; all resolved upon arrival with very subtle stuttering symptoms continuing on floor, and currently none at time of most recent evaluation. Psychiatric: Negative for depression and anxiety. Endocrine: Negative for polyuria, polydipsia. Heme: Negative for easy bruising, bleeding or lymphadenopathy. Allergy: Negative for frequent infections. PHYSICAL EXAMINATION GENERAL APPEARANCE: This is a very pleasant, well-appearing gentleman in no acute distress, sitting up in bed. VITAL SIGNS: At the time of evaluation, blood pressure is 150/100, heart rate is 63, respiratory rate 12, oxygen saturation 97% on room air, temperature is 98. HEENT: Pupils are equal and reactive. Extraocular muscles are intact. Sclerae is anicteric. Mucous membranes are moist. NECK: Supple with no supraclavicular or cervical lymphadenopathy. RESPIRATORY: Lungs are clear to auscultation bilaterally. CARDIAC: Regular rate and rhythm with no murmurs, rubs, or gallop. ABDOMEN: Belly, soft, nontender, nondistended with normoactive bowel sounds. MUSCULOSKELETAL: He moves all 4 limbs spontaneously. EXTREMITIES: He has no edema and 2+ pulses in bilateral DP and lower extremity. He is warm and well perfused. NEUROLOGIC: Cranial nerves II through XII are intact. He has 5/5 strength in bilateral upper extremities and lower extremities. His sensation is grossly symmetric in bilateral lower extremities and upper extremities. Reflexes 2+. Speech is fluent. Gait is not observed. Mbkrln-bo-oqgw testing is normal. A and O x4. Again, the patient reported transient symptoms for several minutes after arrival to floor that have since dissipated. SKIN: Without rashes or lesions. DIAGNOSTIC STUDIES/LAB DATA: White blood cell count 5.9, hemoglobin 14.7, hematocrit 43, platelets 223. INR 0.94. Chemistry: Sodium of 131, potassium 4.3, chloride 98, carbon dioxide 24, anion gap 9, BUN 17, creatinine 1.25, glucose 171, lactic acid 2. AST 25, ALT 24, alkaline phosphatase 88. Troponin 0. Albumin 3.9. LDL 63, HDL 44. TSH 24. UA, unremarkable. EKG normal sinus rhythm, low-voltage with borderline first-degree block. No evidence of acute ischemia. Head CT showed no acute intracranial hemorrhage. Head CTA showed left vertebral artery is occluded with reconstitution of the far distal cervical segment and no stenosis involving the ICAs. ASSESSMENT AND PLAN: This is a 68-year-old male with past medical history of hypothyroidism, hypertension, lph-gdfeyfz-umgkensso diabetes, distant history of provoked deep vein thrombosis, who presented to the ER with transient left- sided neurologic deficits, most consistent with presentation of transient ischemic attack and some signs and symptoms of stuttering transient ischemic attack, once admitted to the hospital. This case was discussed with telestroke and he will be admitted for further identification and etiology. 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 1. Transient ischemic attack. His ABCD2 score is 6 giving him high risk of a 90 day stroke risk of 17.8%. Discussion with telestroke because of one time repeat of transient ischemic attack symptoms once admitted to floor. The patient will be loaded with Plavix 300 x1 and then started on dual antiplatelets as the patient was already on aspirin prior to admission with transient ischemic attack symptoms to aspirin. We will add on A1c. Echo with bubble, tele, MRI, neuro consult will be obtained for further risk stratification with high-risk transient ischemic attack. Secondary prevention with aspirin, Plavix and addition of atorvastatin 40 mg, will be started, PT and OT are consulted. Neuro checks. 2. Hypothyroidism. Will continue home meds. Add on TSH shows elevated at 25, we will slightly increase this from 50 mcg to 75 mcg. 3. Ybo-mjjvtik-utiwrzldx diabetes. Point of care glucose will be initiated with sliding scale lispro. His home meds will be continued. A1c is added on, he is optimized on ARB and will be started on statin for further optimization. 4. Hyponatremia. Unclear if this is related to TSH or secondary to hypovolemic status given mild elevation in creatinine as well. We will give 125 L per hour for 1 L and reassess. 5. DVT prophylaxis. We will place the patient on Lovenox. 6. Diet is carb consistent. 7. Code status is full. 8. Disposition. The patient is stable for admission to [address] [place] [address] for further workup while on tele service. TIME SPENT: Sixty minutes was spent in the planning of this admission with over half of that spent directly at the bedside with the patient providing direct patient care. Plan of care is discussed with the patient and his family , and they have no further questions. [id number]/[facility] #: [id number] ANTONY
--- NOTE | 2018-11-24 12:21 | PN ---
Subjective Date of Service: 11/24/18 Interval History: Patient reports he has had lightheadedness intermittently which resolves on its own. He denies headache, visual changes, chest pain, difficulty breathing, weakness, numbness. It is unclear based on documentation how long the patient's slurred speech, left arm weakness, and left facial droop lasted. The patient believes the symptoms lasted a maximum of two hours. Objective Active Medications: Aspirin (Aspirin 81 Mg Chew Tab*) 81 mg PO DAILY [facility] Last Admin: 11/24/18 08:42 Dose: 81 mg Atorvastatin Calcium (Lipitor*) 40 mg PO 2100 [facility] Clopidogrel Bisulfate (Plavix Tab*) 75 mg PO DAILY [facility] Dextrose (D50w Syringe 50 Ml*) 12.5 gm IV PUSH .FOR FS < 60 - SS PRN PRN Reason: FS < 60 Enoxaparin Sodium (Lovenox(*)) 40 mg SUBCUT Q24H [facility] Last Admin: 11/24/18 00:46 Dose: 40 mg Hydralazine HCl (Apresoline Iv*) 5 mg IV SLOW PU Q6H PRN PRN Reason: Systolic Bp Greater Than: 165 Hydrochlorothiazide (Hydrodiuril Tab*) 25 mg PO DAILY [facility] Last Admin: 11/24/18 08:42 Dose: 25 mg Insulin Human Lispro (Humalog*) 0 units SUBCUT AC [facility]; Protocol Last Admin: 11/24/18 07:48 Dose: Not Given Latanoprost (Xalatan 0.005%*) 1 drop BOTH EYES BEDTIME [facility] Levothyroxine Sodium (Synthroid Tab*) 75 mcg PO 0600 [facility] Last Admin: 11/24/18 05:35 Dose: 75 mcg Losartan Potassium (Cozaar Tab*) 100 mg PO DAILY [facility] Last Admin: 11/24/18 08:42 Dose: 100 mg Metformin HCl (Glucophage*) 1,000 mg PO BID [facility] Sitagliptin Phosphate (Januvia (Nf)) 50 mg PO BID [facility] Vital Signs - 8 hr 11/24/18 07:28 Temperature 97.5 F Pulse Rate 60 Respiratory 16 Rate Blood Pressure 133/82 (mmHg) O2 Sat by Pulse 98 Oximetry Oxygen Devices in Use Now: None Appearance: Elderly, WD/WN black male laying in hospital bed appearing comfortable and in NAD Eyes: No Scleral Icterus, PERRLA Ears/Nose/Mouth/Throat: Mucous Membranes Moist Neck: NL Appearance and Movements; NL JVP Respiratory: Symmetrical Chest Expansion and Respiratory Effort, Clear to Auscultation Cardiovascular: NL Sounds; No Murmurs; No JVD, RRR Abdominal: - - abd soft, nontender, nondistended Extremities: No Edema, No Clubbing, Cyanosis Skin: No Rash or Ulcers Neurological: Alert and Oriented x 3, NL Sensation, NL Muscle Strength and Tone , - - strength 5/5 in all extremities; speech clear; face symmetrical Result Diagrams: 11/23/18 22:37 11/24/18 15:30 Assess/Plan/Problems-Billing Assessment: 68 yo male with PMHx DM, HTN, hypothyroidism, and distant hx of DVT presents with left UE numbness and weakness, left facial droop, and slurred speech which has since resolved. - Patient Problems (1) Left upper extremity numbness Current Visit: Yes Status: Acute Code(s): R20.0 - ANESTHESIA OF SKIN SNOMED Code(s): 790162501 Comment: -associated with LUE weakness, left facial droop, slurred speech which resolved while at the hospital, possibly within 2 hours -CTA head and neck demonstrate occlusion of left vertebral artery which is inconsistent with symptoms -CT brain without intracranial pathology; MRI brain pending -patient had full dose ASA at home, continuing 81 mg ASA -loaded on plavix, will continue 75 mg -patient remains asymptomatic today and neurologic exam wnl -appreciate input from neurology (2) Hypertension Current Visit: Yes Status: Acute Code(s): I10 - ESSENTIAL (PRIMARY) HYPERTENSION SNOMED Code(s): 18100758 Comment: -continue home losartan/HCTZ -normotensive this AM, was hypertensive in ED overnight will continue to monitor (3) Diabetes mellitus type 2 in nonobese Current Visit: Yes Status: Acute Code(s): E11.9 - TYPE 2 DIABETES MELLITUS WITHOUT COMPLICATIONS SNOMED Code(s): 698905550 Comment: -continue home metformin/sitagliptin and SS lispro (4) Hypothyroidism Current Visit: Yes Status: Acute Code(s): E03.9 - HYPOTHYROIDISM, UNSPECIFIED SNOMED Code(s): 33301697 Comment: -uncontrolled given TSH ~25 at admission -home levothyroxine has been increased, will need follow up at discharge (5) Hyponatremia Current Visit: Yes Status: Acute Code(s): E87.1 - HYPO-OSMOLALITY AND HYPONATREMIA SNOMED Code(s): 92282057 Comment: -mild hyponatremia to 132 -likely due to hypothyroidism, will continue to monitor (6) Elevated serum creatinine Current Visit: Yes Status: Acute Code(s): R79.89 - OTHER SPECIFIED ABNORMAL FINDINGS OF BLOOD CHEMISTRY SNOMED Code(s): 299131471 Comment: -checking FeNa -baseline Cr appears to be around 1.2 -his CrCl is normal for race so does not have CKD (7) Full code status Current Visit: Yes Status: Acute Code(s): Z78.9 - OTHER SPECIFIED HEALTH STATUS SNOMED Code(s): 959312892 (8) DVT prophylaxis Current Visit: Yes Status: Acute Code(s): Z29.9 - ENCOUNTER FOR PROPHYLACTIC MEASURES, UNSPECIFIED SNOMED Code(s): 066746799 Comment: -lovenox
[2018-11-24] MEDS: metFORMIN* 1,000 MG TAB PO SCH ×2 (13:06→20:49)
[2018-11-24 16:19] LABS: BUN/Creatinine Ratio 10.7 (8-20); Calcium 10.3 mg/dL (8.6-10.3); EGFR African American 65.8 (>60); EGFR Non-African American 54.4 (>60); Potassium 4.1 mmol/L (3.5-5.0)
--- NOTE | 2018-11-24 20:34 | CONS ---
CONSULTATION REPORT: DATE OF CONSULT: 11/24/18 PATIENT OF: Dr. Jones. HISTORY OF PRESENT ILLNESS: This is a 68-year-old right-handed man who presented yesterday with left arm weakness, some difficulty speaking, with some drooping of the left side of his mouth. There was no aphasia, but the speech was somewhat slurred. There was no headache or numbness. His brought him to the emergency room. His cardiovascular risk factors include hypertension, wcg-dsinpdg-eilgizuyg diabetes. He has had a distant history of a DVT more than 10 years ago and was on anticoagulation for about a year. He has had a history of hypothyroidism. 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 His symptoms lasted an hour per the patient and he feels back to normal at this point; however, there was some stuttering with some speech problems returning, lasting a few minutes as well as left arm numbness, but things had been quiet since yesterday. MEDICATIONS: At home include: 1. Metformin and sitagliptin one tab b.i.d. 2. Levothyroxine 50 mcg daily. 3. Losartan and hydrochlorothiazide 50/12.5 two tabs each evening. 4. The chart says aspirin 325 every other day, but he states that he has not been on aspirin for the past. ALLERGIES: He is allergic to shrimp, but tolerated the CTA. FAMILY HISTORY: Significant for father with leukemia. Mother has hypertension and thyroid disease. 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 He does not smoke, drink, or use drugs. He lives at home with his and children. REVIEW OF SYSTEMS: Negative in all 14 spheres other than the HPI. PHYSICAL EXAM: On exam, temperature 98.2, pulse 64, respiratory rate 16, blood pressure 120/85. He is alert and oriented with normal speech and comprehension Cranial nerves II through XII were intact other than he had decreased nasolabial fold in the left compared to the right. This is a minor asymmetry, and he states this is unchanged from his baseline. Fundi were benign. Motor exam revealed normal tone and strength, uqpjfo-ut-xiii, fine motor. Sensation intact to light touch. Reflexes were 1 and equal. Toes were downgoing. Chest clear. Cardiovascular: Regular rate and rhythm. Abdomen is soft with positive bowel sounds. DIAGNOSTIC STUDIES/LAB DATA: His CTA was as described above. His CT scan showed no acute findings. There may be some subtle white matter changes on his CT scan, which I have reviewed. His CBC was normal other than MCV of 96. INR, PTT normal. Chemistry showed a sodium of 132. Hemoglobin A1c of 7.2. LDL of 63. UA has a specific gravity of 1.036, otherwise normal. IMPRESSION: Mr. Apple most likely had a transient ischemic attack yesterday with a history significant for cardiovascular risk factors including diabetes and hypertension. He does snore to some degree and he is going to check with his if he is a heavy snorer or if there are respiratory pauses, may be that checking a sleep study would be appropriate but we will get more history first. If he has sleep apnea, this would also be a potential cardiovascular risk factor that could be addressed. His LDL was normal and does not need to be treated. He should be on aspirin and Plavix for a month and then single therapy platelet agent after that, either one would be reasonable. He is getting an MRI scan and an echo tomorrow. Depending on whether we think after the MRI scan that he has significant vascular disease including small vessel ischemic disease, we would make a decision whether to do a TE echo. This could be done as an outpatient. He did drive back from [place] yesterday and has a past history of DVT, so we will see what the routine echo shows, what the MRI scan shows, and then go from there. This again I think is much more likely to be atherosclerotic disease, however. Thank you for sharing his case. [id number]/[facility] #: [id number] ANTONY
[2018-11-24] MEDS: SITAGLIPTIN 25 MG PO SCH (20:50)
[2018-11-24] MEDS ORDERED: Atorvastatin* 40 MG TAB PO SCH (21:00)
[2018-11-24] MEDS ORDERED: Latanoprost 0.005%* 2.5 ml BTL BOTH EYES SCH (21:00)
[2018-11-25] MEDS: Levothyroxine TAB* 75 MCG TAB PO SCH (05:48)
[2018-11-25 07:09] LABS: BUN/Creatinine Ratio 12.2 (8-20); Calcium 10.1 mg/dL (8.6-10.3); EGFR African American 70.8 (>60); EGFR Non-African American 58.5 (>60)
[2018-11-25] MEDS: Insulin LISPRO* 1 UNITS UNIT SUBCUT SCH ×3 (08:43→17:19)
[2018-11-25] MEDS: SITAGLIPTIN 25 MG PO SCH (08:56)
[2018-11-25] MEDS: Losartan TAB* 25 MG PO SCH (08:57)
[2018-11-25] MEDS: Aspirin 81 mg CHEW TAB* 81 MG TAB.CHEW PO SCH (08:58)
[2018-11-25] MEDS: metFORMIN* 1,000 MG TAB PO SCH (08:58)
[2018-11-25] MEDS: Hydrochlorothiazide TAB* 25 MG PO SCH (08:58)
[2018-11-25] MEDS ORDERED: Clopidogrel TAB* 75 MG PO SCH (09:00)
--- NOTE | 2018-11-25 12:27 | ECHO ---
*[facility]* [place] [address] Fax #: [phone] Transthoracic Echocardiogram Patient: Sabino Apple : 1950 Study Date: 11/25/2018 Age: 68 Gender: M HR: 66 bpm Height: 77 in /195.6 cm BSA: 2.33 m^2 Weight: 219.5 lb /99.8 kg BMI: 26.1 kg/m^2 *Billiard Table Repairer: * Sarah Taylor [facility] *Referring Physician: * Kimberly Porter *Reading Physician: * Dominique Curry MD Indications: TIA. History: Deep vein thrombosis. Risk factors: Hypertension. Diabetes mellitus. Conclusions Summary: 1. Left ventricle: The cavity size is normal. Systolic function is normal. The estimated ejection fraction is 55-60%. 2. Atrial septum: A PFO is demonstrated by agitated saline contrast. 3. Mitral valve: There is trace regurgitation. 4. No previous echocardiogram is available. Study data: Transthoracic echocardiogram. Procedure: Transthoracic echocardiography was performed. A bubble study was performed. Complete 2D, spectral Doppler, and color flow Doppler. Location: Bedside. Patient status: Inpatient. Patient room number: 452. Rhythm: Normal sinus rhythm. Findings Left ventricle: The cavity size is normal. There is mild concentric hypertrophy. Systolic function is normal. The estimated ejection fraction is 55-60%. Wall motion is normal; there are no regional wall motion abnormalities. Doppler parameters are consistent with abnormal left ventricular relaxation (grade 1 diastolic dysfunction). Right ventricle: The cavity size is mildly dilated. Systolic function is normal. Systolic pressure is within the normal range. Left atrium: The atrium is normal in size. Right atrium: The atrium is normal in size. Atrial septum: A PFO is demonstrated by agitated saline contrast. Bubble study image 41. Mitral valve: The leaflets are mildly thickened. There is no evidence of stenosis. There is trace regurgitation. Aortic valve: The valve is trileaflet. There is no evidence of stenosis. There is no significant regurgitation. Tricuspid valve: The leaflets are normal thickness. There is no evidence of stenosis. There is trace regurgitation. Pulmonic valve: Not well visualized. There is no evidence of stenosis. There is no significant regurgitation. Aorta: Aortic root: The aortic root is upper normal in size. Ascending aorta: The ascending aorta is appears normal. Aortic arch: The aortic arch is appears normal. Pericardium: A prominent pericardial fat pad is present. There is no significant pericardial effusion. Pulmonary arteries: The main pulmonary artery is normal-sized. Systemic veins: Inferior vena cava: Not visualized. Measurements Left ventricle Value Ref Aortic valve Value Ref LIDIA, LAX (L) 4.0 cm 4.2 - 5.8 Judy diam, ED 2.1 cm ----- ESD, LAX 3.0 cm 2.5 - 4.0 Peak v, S 1.11 m/sec ----- FS, LAX 26 % 25 - 43 VTI, S 25.3 cm ----- PW, ED, LAX (H) 1.2 cm 0.6 - 1.0 Mean grad, S 3.0 mm Hg ----- FS 26 % 25 - 43 Peak grad, S 5.0 mm Hg ----- PW, ED (H) 1.2 cm 0.6 - 1.0 LVOT/AV, VTI ratio 1.07 ----- E', lat judy, TDI (L) 6.2 cm/sec >=10.0 E/e', lat judy, 8 Mitral valve Value Ref TDI Peak E 0.49 m/sec ----- E', med judy, TDI (L) 6.6 cm/sec >=7.0 Peak A 0.65 m/sec --- -- E/e', med judy, 7 Decel time 268 ms ----- TDI Peak E/A ratio 0.8 ----- E', avg, TDI 6.4 cm/sec E/e', avg, TDI 8 <=14 Pulmonic valve Value Ref Peak v, S 0.92 m/sec ----- LVOT Value Ref Peak grad, S 3.0 mm Hg ----- Peak angelito, S 0.99 m/sec VTI, S 27.0 cm Tricuspid valve Value Ref Mean grad, S 3 mm Hg TR peak v 2.1 m/sec <=2.8 Peak RV-RA grad, S 18 mm Hg ----- Ventricular septum Value Ref IVS, ED (H) 1.2 cm 0.6 - 1.0 Aortic root Value Ref Root diam 3.7 cm <4.4 Right ventricle Value Ref LIDIA, LAX 3.8 cm Ascending aorta Value Ref LIDIA minor ax, A4C (H) 4.5 cm 1.9 - 3.5 AAo AP diam, S 3.5 cm ----- mid Pressure, S 26 mm Hg Aortic arch Value Ref Arch diam 2.6 cm ----- Left atrium Value Ref AP dim, ES 3.20 cm 3.00 - Decending aorta Value Ref 4.00 [place] peak angelito 0.65 m/sec ----- ML dim, A4C 3.8 cm SI dim, A4C 4.2 cm Pulmonary artery Value Ref Vol/bsa, ES, 1-p 15 ml/m^2 12 - 37 Pressure, S 23.0 mm Hg ----- A4C Vol/bsa, ES, A/L 23 ml/m^2 16 - 34 Right atrium Value Ref SI dim, ES 3.8 cm 3.4 - 5.3 ML dim, ES, A4C 3.9 cm 2.6 - 4.4 SI dim, ES, A4C 3.8 cm 3.4 - 5.3 Estimated RAP 8 mm Hg Legend: (L) and (H) meka values outside specified reference range. Prepared and electronically signed by Dominique Curry MD 11/25/2018 12:26
[2018-11-25 13:00] VITALS: BP 128/86
--- NOTE | 2018-11-25 19:54 | PN ---
PROGRESS NOTE: DATE OF SERVICE: 11/25/18 PATIENT OF: CLARA June HISTORY: The patient is now asymptomatic without any complaints. MEDICATIONS: 1. Aspirin. 2. Plavix. 3. Lipitor. 4. HydroDIURIL 25 daily. 5. Synthroid. 6. Losartan. 7. Glucophage. 8. Januvia as per chart. PHYSICAL EXAM: Temperature 97.7, pulse 71, respirations 16, blood pressure 128/ 86. He is alert and oriented with normal speech and comprehension. Cranial nerves II through XII are intact. Motor exam revealed normal tone and strength. Chest: Clear. Cardiovascular: Regular rate and rhythm. DIAGNOSTIC STUDIES/LAB DATA: I reviewed his MRI scan, which showed significant white matter disease, most likely small vessel ischemic. His transthoracic echo showed a PFO but there are no abnormalities in his left atria and technical agronomist is contacted and there is no specific comment as to the size of the PFO. His venous Doppler studies, which I requested a workup for DVT given his long car trip and the PFO is pending at this point. IMPRESSION AND PLAN: I discussed with Ms. Apple and Elizabeth Tucker that if his venous Doppler was negative and he did not appear to have a deep vein thrombosis, then most likely his transient ischemic attack was secondary to his cardiovascular risk factors including his diabetes and hypertension. He should be on aspirin and Plavix for a month and then he can go to aspirin daily, which he had been on up until about a month before. I discussed the pros and cons of obtaining a loop recorder monitoring to search for atrial fibrillation which is possible, but less likely cause of his stroke and discussed with him in detail the difference in terms of treatment and reduction of risk factor if he was having cardioembolic strokes with us finding that he has atrial fibrillation and treating with anticoagulation. He does not want to do this now and he knows that if he waits, it is possible that it could be an interim stroke that could be prevented. He is going to decide within the next several weeks. I will be seeing him back in a month's time, but he can call me sooner for issues or changes. Thank you for sharing his case. [id number]/[facility] #: [id number] ANTONY
--- NOTE | 2018-11-25 23:08 | DS ---
CC: Dr. Jones; Dr. Levi * DISCHARGE SUMMARY: DATE OF ADMISSION: 11/23/18 DATE OF DISCHARGE: 11/25/18 ATTENDING PHYSICIAN WHILE IN THE HOSPITAL: Dr. Karime Olivas * (dictated by CLARA June). PRIMARY CARE PROVIDER: Dr. Jones. CONSULTING PHYSICIAN: Dr. Levi. PRIMARY DIAGNOSIS: Transient ischemic attack. SECONDARY DIAGNOSES: 1. Hypothyroidism. 2. Hypertension. 3. Diabetes mellitus type 2. 4. History of provoked deep venous thrombosis. 5. Inguinal hernia repair. 6. History of Graves' disease. 7. Glaucoma. STUDIES WHILE IN THE HOSPITAL: Transthoracic echocardiogram on 11/25/18 demonstrates positive bubble study indicating presence of PFO. Ejection fraction is 55% to 60%. The bilateral lower extremity venous Doppler 11/25/18 negative for DVT. Brain MRI on 11/25/18, no hemorrhage, mass, or mass effect. Chronic small vessel ischemic type change. No abnormally restricted diffusion to suggest acute ischemic event. 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 Head CT angiogram left vertebral artery occlusion with reconstitution of far distal cervical segment. PERTINENT LAB DATA: LDL 63, nonfasting. Sodium of 132. HISTORY OF PRESENT ILLNESS/HOSPITAL COURSE: Mr. Apple is a 68-year-old black male with past medical history significant for diabetes, hypertension, hypothyroidism, and history of DVT, who presented to the emergency department due to left-sided arm weakness and did develop a left-sided facial droop and some slurred speech. Please see admitting history and physical dictated by Kimberly Porter for further information. While in the hospital, he had resolution of symptom, which are estimated to be approximately lasting 2 hours. He already started 325 mg of aspirin when he was at home and he was loaded on Plavix while he was here at the hospital. His CTA demonstrated left vertebral artery occlusion with collateral flow and his symptoms are on the left side and therefore this is more of an incidental finding. His MRI was found to be negative for stroke but did have some ischemic changes and Dr. Levi with Neurology saw the patient and recommended 1 month of aspirin and Plavix in combination for his TIA. Additionally during his hospital stay, he was found to be hyponatremic, which was stable and he appears to have this as a chronic issue. When he was in the hospital in August, he had hyponatremia as well. Given that an echocardiogram demonstrated PFO and the patient had recent travel in the car, DVT was ruled out with Doppler bilaterally. During his hospital stay , his blood pressure was overall well controlled as well as his hypoglycemia and his home medications were continued. On the day of discharge, the patient is feeling well. He denies numbness, weakness, tingling of his extremities with changes in vision, chest pain, difficulty breathing, and dizziness. The patient had no arrhythmias found on telemetry during his hospital stay. The patient was found to have an elevated TSH during his hospital stay, which was likely contributing to his hyponatremia. His home levothyroxine was increased from 50 mcg to 75 mcg. PHYSICAL EXAMINATION: General: Well-developed, well-nourished, black male, appears younger than stated age, lying in the hospital bed, appearing in no acute distress. Head: Normocephalic, atraumatic. Eyes: PERRLA. Sclerae anicteric. ENT: Mucous membranes are moist. Neck: Supple. Lungs: Clear to auscultation. Cardio: Regular rate and rhythm without murmurs, rubs, or gallops. Abdomen: Soft, nontender, nondistended. Extremities: No clubbing, cyanosis, or edema. Neuro: No focal deficits. Strength is 5/5 in all extremities. The patient is alert and oriented x3. Skin: Skin is warm, dry, and intact. DISCHARGE PLAN: DIET: Carbohydrate consistent diet. ACTIVITY: The patient may return to normal activity as tolerated. DISCHARGE MEDICATIONS: 1. Plavix 75 mg p.o. daily. 2. Aspirin 81 mg p.o. daily. 3. Levothyroxine 75 mcg Continued home medications: 1. Sitagliptin/metformin p.o. b.i.d. 2. Losartan/hydrochlorothiazide 50/12.5 mg 2 tabs p.o. q.p.m. 3. Latanoprost 0.005% 1 drop both eyes at bedtime. The patient was advised to return to the hospital if he experiences one-sided numbness, weakness, or tingling; changes in vision, slurred speech or facial drooping. He was advised to follow up with Dr. Levi in 1 month. At this time, Dr. Levi does not feel that the statin is necessary given that he currently already has good control. It may be of benefit for the patient to have a loop recorder in the outpatient setting to rule out atrial fibrillation given the patient's presence of PFO and this should be established by his primary care provider. He is advised to follow up with his primary care provider in 7 to 10 days. He was advised to check his blood pressure every other day leading up to his follow up with his primary care provider to confirm that he does in fact have good control of hypertension given this new diagnosis of TIA. Additionally, he should have followup of his TSH given that it was abnormal and we did increase his levothyroxine during his hospital stay. CONDITION ON DISCHARGE: Stable. DISPOSITION: Home. TIME SPENT: Approximately 35 minutes was spent on this discharge, approximately half this time was spent at the bedside. CLARA JUNE [id number]/[facility] #: [id number] MTDD
== END 2018-11-25 19:00 | disposition home or self-care (01) | DRG 47 ==
LOC: ED 22:11 → MEDTELE 23:27
PROVIDERS: ADMIT Internal Medicine; ATTEND Internal Medicine
DX: G45.9 Transient cerebral ischemic attack, unspecified (principal); Q21.1 Atrial septal defect; E87.1 Hypo-osmolality and hyponatremia; E03.9 Hypothyroidism, unspecified; I10 Essential (primary) hypertension; E11.8 Type 2 diabetes mellitus with unspecified complications; E05.00 Thyrotoxicosis with diffuse goiter without thyrotoxic crisis or storm; H40.9 Unspecified glaucoma; R94.6 Abnormal results of thyroid function studies; I44.0 Atrioventricular block, first degree; J30.2 Other seasonal allergic rhinitis; Z86.718 Personal history of other venous thrombosis and embolism; Z79.84 Long term (current) use of oral hypoglycemic drugs; Z79.82 Long term (current) use of aspirin; Z79.899 Other long term (current) drug therapy; Z91.013 Allergy to seafood; Z80.6 Family history of leukemia; Z83.49 Family history of other endocrine, nutritional and metabolic diseases; Z82.49 Family history of ischemic heart disease and other diseases of the circulatory system
CPT/HCPCS: 36415; 70450; 70496; 70498; 70551; 80048; 80053; 80061; 81003; 83036; 83605; 84443; 84484; 85025; 85610; 85730; 93005; 93306; 93970; 99285; A9270-GY; G8978-GP-CI; G8979-GP-CI; G8980-GP-CI; J1650; Q9967

== ENCOUNTER 2018-11-27 18:12 | Emergency (ER) | payer BC ==
--- NOTE | 2018-11-27 20:01 | ED ---
Upper Extremity Pain - HPI Summary HPI Summary: 68 year [facility] with chief complaint of right upper extremity pain since 1600 today. Pain is rated at 9/10 in severity, per triage. Patient reports taking Tylenol in triage at 1900 today which is currently alleviating the pain. Patient describes pain as starting below shoulder going up the shoulder, across the chest, and down the right arm. Patient denies leg pain. Patient reports previous ED admission for TIA and neck pain which he currently takes aspirin and Plavix for but denies going to physical therapy. Patient was diagnosed with a pinched nerve. Symptoms aggravated by nothing. Symptoms alleviated by over the counter medication. - History of Current Complaint Chief Complaint: EDExtremityUpper Stated Complaint: RT SIDE PAIN PER PT Time Seen by Provider: 11/27/18 19:50 Hx Obtained From: Patient Onset/Duration: Started Hours Ago, Still Present Timing: Lasting Hours Severity Initially: Severe Severity Currently: Moderate Pain Location: Shoulder, Arm - right Aggravating Factor(s): Nothing Alleviating Factor(s): OTC Meds - Tylenol Extra Strength - Allergies/Home Medications Allergies/Adverse Reactions: Allergies Allergy/AdvReac Type Severity Reaction Status Date / Time shrimp Allergy Rash Verified 11/27/18 20:04 ENVIRONMENTAL/SEASONAL Allergy SNEEZE, Uncoded 08/26/18 09:13 HAYFEVER CONGESTION PMH/Surg Hx/FS Hx/Imm Hx Endocrine/Hematology History: Reports: Hx Diabetes - TYPE 2, 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 ) Denies: Hx Systemic Lupus Erythematosus, Hx Sickle Cell Disease Cardiovascular History: Reports: Hx Hypertension - WELL CONTROLLED WITH MEDICATION, Other Cardiovascular Problems/Disorders - 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 AGO, NO PROBLEMS NOW Denies: Hx Congestive Heart Failure, Hx Pacemaker/ICD Respiratory History: Denies: Hx Asthma, Hx Chronic Obstructive Pulmonary Disease (COPD), Hx Sleep Apnea GI History: Denies: Hx Ulcer History: Denies: Hx Dialysis, Hx Renal Disease, Other Problems/Disorders Musculoskeletal History: Reports: Hx Arthritis - BILATERAL KNEES Denies: Hx Rheumatoid Arthritis Sensory History: Reports: Hx Contacts or Glasses - GLASSES, Hx Glaucoma - BILATERAL Denies: Hx Hearing Aid Opthamlomology History: Reports: Hx Contacts or Glasses - GLASSES, Hx Glaucoma - BILATERAL Neurological History: Denies: Hx Seizures, Other Neuro Impairments/Disorders Psychiatric History: Denies: Hx Panic Disorder - Cancer History Hx Chemotherapy: No - Surgical History Surgery Procedure, Year, and Place: inguinal repair 10 yrs ago; lap knee surgery BILATERAL KNEES Hx Anesthesia Reactions: No - Immunization History Date of Influenza Vaccine: no Infectious Disease History: No Infectious Disease History: Denies: Hx Hepatitis, Hx Human Immunodeficiency Virus (HIV), Traveled Outside the [place] in Last 30 Days - Family History Known Family History: Positive: Other - Leukemia in father Family History: Father with leukemia - Social History Alcohol Use: None Hx Substance Use: No Substance Use Type: Reports: None Hx Tobacco Use: No Smoking Status (MU): Never Smoked Tobacco Review of Systems Negative: Fever Positive: Other - Shoulder and right arm pain All Other Systems Reviewed And Are Negative: Yes Physical Exam - Summary Physical Exam Summary: VITAL SIGNS: Reviewed. GENERAL: Patient is a well-developed and nourished MALE who is lying comfortable in the stretcher. Patient is not in any acute respiratory distress. HEAD AND FACE: No signs of trauma. No ecchymosis, hematomas or skull depressions. No sinus tenderness. EYES: PERRLA, EOMI x 2, No injected conjunctiva, no nystagmus. EARS: Hearing grossly intact. Ear canals and tympanic membranes are within normal limits. MOUTH: Oropharynx within normal limits. NECK: Supple, trachea is midline, no adenopathy, no JVD, no carotid bruit, no c- spine tenderness, neck with full ROM CHEST: Symmetric, no tenderness at palpation LUNGS: Clear to auscultation bilaterally. No wheezing or crackles. CVS: Regular rate and rhythm, S1 and S2 present, no murmurs or gallops appreciated. ABDOMEN: Soft, non-tender. No signs of distention. No rebound no guarding, and no masses palpated. Bowel sounds are normal. EXTREMITIES: FROM in all major joints, no edema, no cyanosis or clubbing. NEURO: Alert and oriented x 3. No acute neurological deficits. Speech is normal and follows commands. SKIN: Dry and warm Triage Information Reviewed: Yes Vital Signs On Initial Exam: Initial Vitals Temp Pulse Resp BP Pulse Ox 98.1 F 84 18 178/102 99 11/27/18 18:16 11/27/18 18:16 11/27/18 18:16 11/27/18 18:16 11/27/18 18:16 Vital Signs Reviewed: Yes Diagnostics - Vital Signs Vital Signs Temp Pulse Resp BP Pulse Ox 11/27/18 18:16 98.1 F 84 18 178/102 99 - Laboratory Lab Statement: Any lab studies that have been ordered have been reviewed, and results considered in the medical decision making process. Course/Dx - Course Assessment/Plan: 68 year old M presenting to [facility] accompanied with a chief complaint of upper extremity pain since 1600, rated at 9/10 in severity, per triage. Patient describes pain as below shoulder going up the shoulder, across the chest, and down the right arm. Patient denies leg pain. Physical exam shows no abnormalities. Patient was given Tramadol Hcl 50 mg PO in the emergency department. Patient was in the ED on 08/26/18 for similiar symptoms and complaints. He was diagnosed with cervical radiculopathy but did not follow plan of care. Patient will be given same plan and medications. Patient will be discharged with prescription for tramadol for pain and will follow up with Dr. Verde, neurosurgery, and primary care provider within 3 days. The patient is agreeable with this plan. - Diagnoses Provider Diagnoses: Cervical radiculopathy Discharge - Sign-Out/Discharge Documenting (check all that apply): Patient Departure - discharge Patient Received Moderate/Deep Sedation with Procedure: No - Discharge Plan Condition: Stable Disposition: HOME Prescriptions: traMADol TAB* [Ultram*] 50 mg PO Q6HR PRN #14 tab MDD 4 PRN Reason: Pain Patient Education Materials: Cervical Radiculopathy (ED) Referrals: Chelsie Verde MD [Medical Doctor] - 3 Days Jay Jones MD [Primary Care Provider] - 3 Days Additional Instructions: Follow up with neurosurgery, Dr. Verde, and primary care provider within 3 days. PLEASE RETURN TO THE ED IMMEDIATELY FOR WORSENING OR CONCERNING SYMPTOMS. - Attestation Statements Document Initiated by Scribe: Yes Documenting Scribe: Chery Lilly Provider For Whom David is Documenting (Include Credential): Naima Huitron MD Scribe Attestation: Sohail Felix Alison Kim, scribed for Naima Huitron MD on 11/27/18 at 2101. Status of Scribe Document: Ready
[2018-11-27] MEDS ORDERED: traMADol TAB* 50 MG PO ONE ×2 (20:10→20:12)
[2018-11-27 20:29] VITALS: BP 166/91
== END 2018-11-27 20:28 | disposition home or self-care (01) ==
LOC: ED 18:12
DX: M54.12 Radiculopathy, cervical region (principal); E11.9 Type 2 diabetes mellitus without complications; I10 Essential (primary) hypertension; Z79.01 Long term (current) use of anticoagulants; Z79.82 Long term (current) use of aspirin; Z86.73 Personal history of transient ischemic attack (TIA), and cerebral infarction without residual deficits
CPT/HCPCS: 99283; A9270-GY

== ENCOUNTER 2019-06-06 11:25 | Observation (INO) | payer BC ==
[2019-06-06] MEDS ORDERED: Midazolam* 1 MG/ML 5 ML VIAL (5 MG) ONE (13:52)
[2019-06-06] MEDS ORDERED: Bupivacaine 0.25% SDV* 30 ML ONE (14:23)
[2019-06-06] MEDS ORDERED: Lidocaine 1% w EPI 1:200,000* SDV 30 ML VIAL ONE (14:23)
[2019-06-06] MEDS ORDERED: fentaNYL* 50 MCG/ML 2 ML VIAL (100 MCG VIAL) ONE ×2 (14:33→15:29)
[2019-06-06] MEDS ORDERED: KETAMINE HCL* 50 MG/ML 10 ML VIAL ONE (14:37)
[2019-06-06] MEDS ORDERED: HYDROmorphone INJ1* 1 MG/ML SYRINGE IV PRN (15:08)
[2019-06-06] MEDS ORDERED: oxyCODONE/Acetamin 5/325 MG* TAB PO PRN ×2 (15:08→15:30)
[2019-06-06] MEDS ORDERED: Ondansetron INJ* 2 MG/ML VIAL IV PRN ×2 (15:08→15:30)
[2019-06-06] MEDS ORDERED: fentaNYL* 50 MCG/ML 2 ML VIAL (100 MCG VIAL) IV PRN (15:08)
[2019-06-06] MEDS ORDERED: Acetaminophen TAB* 325 MG PO PRN (15:08)
[2019-06-06] MEDS ORDERED: Naloxone* 0.4 MG/ML 1 ML VIAL IV PRN (15:08)
[2019-06-06] MEDS ORDERED: DiMENhydriNATE IV* 50 MG/ML VIAL IV PUSH PRN (15:08)
[2019-06-06] MEDS ORDERED: Acetaminophen TAB* 325 MG ONE (15:13)
[2019-06-06] MEDS ORDERED: HYDROmorphone INJ* 0.5 MG/0.5 ML SYRINGE IV SLOW PU PRN (15:30)
[2019-06-06] MEDS ORDERED: Magnesium Hydroxide LIQ* 30 ML UDC PO PRN (16:02)
--- NOTE | 2019-06-06 16:12 | OP ---
Operative Report - Blank - Operative Report Date of Operation: 06/06/19 Note: PREOP DX: PERIRECTAL ABSCESS POSTOP DX: SAME PROC: I&D OF ABOVE SURG: MECENAS ASSIST: TRACE ANES: LOCAL/MAC; SANITO EBL: <10ML IVF: 1300 ML LR SPEC: ABSCESS FLUID DRAIN: 05/17 " PACKING COMPL: NONE COND: STABLE FINDINGS: L LATERAL PERIRECTAL ABSCESS, EXTRASPHINCTERIC
[2019-06-06] MEDS: NS 0.9% 1000 ML** 1,000 ML IV SCH (17:07)
[2019-06-06] MEDS: Ketorolac INJ* 15 MG/ML 1 ML VIAL IV PUSH SCH (18:00)
[2019-06-06] MEDS ORDERED: ZOSYN 3.375 GM x ONE DOSE over 30 miuntes IVPB ×2 (18:00)
[2019-06-06] MEDS: metFORMIN* 1,000 MG TAB PO SCH (20:57)
[2019-06-06] MEDS: Sitagliptin (NF) 50 MG TAB PO SCH (20:58)
[2019-06-06] MEDS ORDERED: Losartan TAB* 25 MG PO SCH (21:00)
[2019-06-06] MEDS ORDERED: Hydrochlorothiazide TAB* 25 MG PO SCH (21:00)
[2019-06-06] MEDS ORDERED: Latanoprost 0.005%* 2.5 ml BTL BOTH EYES SCH (21:00)
[2019-06-06] MEDS: Piperacillin/Tazobactam VIAL*) 3.375 GM in NS 0.9% 100 ML* 100 ML IVPB SCH (22:48)
--- NOTE | 2019-06-07 01:47 | OP ---
CC: Jay Jones MD * DATE OF OPERATION: 06/06/19 - ROOM #338 DATE OF : 50 SURGEON: Chance Garner MD MARBLE RUBBER: Dr. Parks ANESTHESIOLOGIST: Dr. Blake ANESTHESIA: Local MAC. PRE-OP DIAGNOSIS: Perirectal abscess. POST-OP DIAGNOSIS: Perirectal abscess. OPERATIVE PROCEDURE: Incision and drainage of perirectal abscess. ESTIMATED BLOOD LOSS: Less than 10 mL. IV FLUIDS: 1300 mL crystalloid. SPECIMEN: Abscess fluid for culture and sensitivity. DRAINS AND PACKS: 1/4 inch plain packing. COMPLICATIONS: None. COUNTS: Instrument, needle, sponge counts correct. DESCRIPTION OF PROCEDURE: The patient was brought to the operating room, placed on the table prone. His buttocks were taped laterally. He was administered intravenous sedation. He was prepped and draped in sterile fashion. Time-out was performed. Digital rectal examination was performed. There was no evidence of blood or pus or brown stool. Hill-Jean retractors were placed and inspection of the anal mucosa revealed internal hemorrhoids without any evidence of active bleeding, no evidence of any pus or drainage. There was induration and firmness at the left lateral aspect approximately 8 o'clock position. Local anesthetic was infiltrated into this site and then an 18-gauge needle was used to aspirate this site and pus was returned about 8 cc. This was submitted to Pathology and the abscess was opened with a cruciate incision. Additional purulent fluid was drained out. The abscess was irrigated until clear. The triangles of the wound were excised to open the wound to approximately a centimeter. The wound was packed with 1/4 inch plain gauze packing, and dressings applied. The patient tolerated the procedure well and was transferred to the Recovery in stable condition. [id number]/[facility] #: [id number] MTDD
[2019-06-07] MEDS ORDERED: Levothyroxine TAB* 75 MCG TAB PO SCH (06:00)
[2019-06-07] MEDS ORDERED: Clopidogrel TAB* 75 MG PO SCH ×2 (06:15→09:00)
[2019-06-07] MEDS: Piperacillin/Tazobactam VIAL*) 3.375 GM in NS 0.9% 100 ML* 100 ML IVPB SCH (06:20)
[2019-06-07] MEDS: NS 0.9% 1000 ML** 1,000 ML IV SCH (06:21)
[2019-06-07] MEDS: Ketorolac INJ* 15 MG/ML 1 ML VIAL IV PUSH SCH ×2 (06:22)
[2019-06-07 07:52] VITALS: BP 102/57
[2019-06-07] MEDS: metFORMIN* 1,000 MG TAB PO SCH (08:35)
[2019-06-07] MEDS: Sitagliptin (NF) 50 MG TAB PO SCH (08:35)
[2019-06-07] MEDS ORDERED: Docusate CAP* 100 MG PO SCH (09:00)
--- NOTE | 2019-06-07 10:01 | PN ---
Progress Note - Progress Note Date of Service: 06/07/19 SOAP: Subjective: Doing well-much less pain Voiding without difficulty Tolerating regular diet Objective: Temp Pulse Resp BP Pulse Ox 97.8 F 79 16 102/57 99 06/07/19 07:51 06/07/19 07:51 06/07/19 09:20 06/07/19 07:51 06/07/19 07:51 Intake & Output 06/05/19 06/06/19 06/07/19 06/08/19 06:59 06:59 06:59 06:59 Intake Total 3195 Balance 3195 Weight 190 lb Intake: IV Fluids 2505 Lactated Ringers 1550 NS (0.9%) 955 IVPB 110 ABX - ZOSYN 110 Oral 580 Other: Estimated Void Large # Voids 1 Comfortable Lungs are clear Abd is soft and NT Perineum-abscess cavity is clean, minimal SG drainage, no odor Half length of packing removed without difficulty Assessment: POD #1 s/p tejas-rectal abscess I and D--doing well Portion of packing removed Plan: D/C home today Oral antibiotics and analgesia Office follow up Pt to remove remainder of packing tomorrow Sitz bath Outpatient written instructions given
== END 2019-06-07 12:00 | disposition home or self-care (01) ==
LOC: OR 11:25 → SSU 15:30
PROVIDERS: ADMIT Surgery; ATTEND Surgery
DX: K61.2 Anorectal abscess (principal); K59.00 Constipation, unspecified; E11.9 Type 2 diabetes mellitus without complications; I10 Essential (primary) hypertension; E03.9 Hypothyroidism, unspecified; E87.1 Hypo-osmolality and hyponatremia
CPT/HCPCS: 87070; 87073; 87076; 87077; 87185; 87186; 87205; 96365; 96366; 96375; 96376; A9270-GY; G0378; J1885; J2001; J2250; J2543; J3010; J3490